=== PATIENT | female | born 2000 | race Caucasian/White ===

== ENCOUNTER 2021-12-10 16:30 | Inpatient (IN) | payer OTHER, MEDICAID ==
[~2021-12-10] VITALS: Ht 157.5 cm; Wt 101.8 kg
[2021-12-10] VITALS (18 sets, daily range): BP systolic 94–130; BP diastolic 50–81; PULSE 72–103; TEMP 97.4–97.9
--- NOTE | 2021-12-10 16:40 | NUR ---
157891.4, G2L0 arrives on unit with c/o regular ctx since 1500. Reports normal movement. Denies any LOF or VB. Ambulatory to LDR5 with SO, oriented to room and chnages into clean gown. [id number] explained and placed. VS obtained. Assessment completed. 165SVE /-2. BOWI. [id number] Bernard updated on pt. See physician notification. Plan of care reviewed with pt and SO who verbalize understanding. [id number] to left hand. Routine labs obtained. 1743Dr. Joana to bedside and reviews plan of care with pt and SO. AROM by Dr. Bernard for small amout of light meconium fluid. SVE 2. Marisol care provided. 1745LR and PCN G explained and infusing per Dr. Montenegro orders. Pt resting with call light within reach.
[2021-12-10] MEDS ORDERED: PRENATAL TABLET PO (16:58)
[2021-12-10] MEDS ORDERED: UNISOM25 MG PO (16:59)
[2021-12-10] MEDS ORDERED: ZYRTEC 10MG10 MG PO (16:59)
[2021-12-10 17:48] LABS: HEMATOCRIT 41.5 % (37.0-47.0); HEMOGLOBIN 14.2 g/dl (12.5-16.0); MEAN CELL VOLUME 87 fl (80.0-100.0); MEAN CORPUSCULAR HEMOGLOBIN 30 pg (27-31); MEAN CORPUSCULAR HGB CONC 34 g/dl (33.0-37.0); MEAN PLATELET VOLUME 9.7 fl (7.4-10.4); PLATELET COUNT 249 K/mm3 (130-400); RED BLOOD COUNT 4.75 M/mm3 (4.10-5.30); REDCELL DISTRIBUTION WIDTH-CV 13.4 % (11.5-14.5)
[2021-12-10 18:46] LABS: BAND 5 % (0-10); EOSINOPHIL 3 % (0-4); LYMPHOCYTE 35 % (20.0-51.0); NEUTROPHILS 52 % (42.0-75.2); PLATELET ESTIMATE NORMAL (NORMAL)
--- NOTE | 2021-12-10 20:42 | NUR ---
Pt requesting epidural at this time. ABRAHAM Hunt notified.
[2021-12-11] VITALS (27 sets, daily range): BP systolic 106–136; BP diastolic 50–65; PULSE 95–121; TEMP 97.4–98.2
--- NOTE | 2021-12-11 02:37 | NUR ---
Pt calls out stating she is feeling pressure with her contractions. SVE 10/100/0.
--- NOTE | 2021-12-11 08:29 | NUR ---
0720 PT UP TO BR VOIDS 300ML, REVIEWED PERICARE, PADS, ICE PACKS AND MEASURING VOIDS. PT AMBULATES TO RM 216 TOLERATES WELL.
[2021-12-12] VITALS: BP 93/45; PULSE 78; TEMP 97.4
[2021-12-12 04:55] VITALS: BP 114/68; PULSE 93; TEMP 97.7
[2021-12-12 08:18] VITALS: BP 103/58; PULSE 83; TEMP 98
--- NOTE | 2021-12-12 08:23 | NUR ---
PATIENT UP AROUND ROOM. VISITING WITH MOTHER ON TELEPHONE AT THIS TIME. TOLERATING PO PAIN MEDS. PT STATES SHE IS PUMPING EVERY 3 HOURS, HASN'T SEEN MUCH OUTPUT YET.
[2021-12-12] MEDS ORDERED: MOTRIN 800800 MG/TAB PO (08:41)
--- NOTE | 2021-12-12 09:57 | NUR ---
Initial visit; Parents thanked [employer] for offering congratulations and God's blessings for the of their daughter. [employer] thanked family for choosing our hospital.
--- NOTE | 2021-12-12 12:30 | NUR ---
1200 DISCHARGE INFO PROVIDED. NO QUESTIONS AT THIS TIME. CARSEAT STRAPS CHECKED. FATHER CARRIED INFANT TO CAR, MOTHER WALKED. INFANT VERIFIED PLACED REAR FACING IN SECURED CARSEAT BASE.
== END 2021-12-12 12:07 | disposition home or self-care (01) | DRG 807 ==
LOC: LDRO 16:30 → LDR 17:10 → OB 17:10
PROVIDERS: ADMIT Obstetrics & Gynecology
PROC: 10E0XZZ Delivery of Products of Conception, External Approach (ICD-10-PCS; principal; 2021-12-11)
PROC: 0KQM0ZZ Repair Perineum Muscle, Open Approach (ICD-10-PCS; 2021-12-11)
PROC: 10907ZC Drainage of Amniotic Fluid, Therapeutic from Products of Conception, Via Natural or Artificial Opening (ICD-10-PCS; 2021-12-11)
DX: O99.824 Streptococcus B carrier state complicating childbirth (principal); Z37.0 Single live birth; O69.81X0 Labor and delivery complicated by cord around neck, without compression, not applicable or unspecified; O77.0 Labor and delivery complicated by meconium in amniotic fluid; O70.1 Second degree perineal laceration during delivery; Z3A.40 40 weeks gestation of pregnancy
CPT/HCPCS: J2540; J2590; J7120